=== PATIENT | male | born 1945 | race Caucasian/White ===

== ENCOUNTER 2018-03-08 05:53 | Day surgery (SDC) | payer MEDICARE ==
[~2018-03-08] VITALS: Ht 180.3 cm; Wt 89.4 kg
[~2018-03-08 05:53] MED LIST: ASPIRIN81 MG PO; CARBIDOPA25 MG PO; DULOXETINE HCL60 MG PO; LOSARTAN POTASS25 MG PO; METOPROL TAR25 MG PO; NOVOLIN N100 UNIT/1 SC
[2018-03-08 07:53] VITALS: BP 128/66
== END 2018-03-08 08:05 | disposition home or self-care (01) ==
LOC: ENDO 05:53
PROVIDERS: ATTEND Surgery
PROC: 0DBL8ZX Excision of Transverse Colon, Via Natural or Artificial Opening Endoscopic, Diagnostic (ICD-10-PCS; principal; 2018-03-08)
DX: Z12.11 Encounter for screening for malignant neoplasm of colon (principal); D12.3 Benign neoplasm of transverse colon; K57.30 Diverticulosis of large intestine without perforation or abscess without bleeding; K64.4 Residual hemorrhoidal skin tags; Q43.8 Other specified congenital malformations of intestine; I25.10 Atherosclerotic heart disease of native coronary artery without angina pectoris; E11.9 Type 2 diabetes mellitus without complications; G20 Parkinson's disease; Z86.010 Personal history of colon polyps

== ENCOUNTER 2019-01-29 19:05 | Inpatient (IN) | payer MEDICARE ==
[~2019-01-29] VITALS: Ht 180.3 cm; Wt 78.0 kg
--- NOTE | 2019-01-29 19:25 | NUR ---
PT AMBULATORY TO ROOM, ACCOMPANIED BY HIS .
[2019-01-29] MEDS ORDERED: TRAZODONE50 MG PO (19:51)
[2019-01-29] MEDS ORDERED: HYDROCHLOROT25 MG PO (19:52)
[2019-01-29] MEDS ORDERED: CARB/LEVO SR PO (19:53)
[2019-01-29] MEDS ORDERED: TOPROL XL25 M1 PO (19:54)
--- NOTE | 2019-01-29 20:17 | NUR ---
PT WITH IV ESTABLISHED, BLOOD DRAWN, AWARE OF PENDING ADMISSION.
[2019-01-29 20:19] LABS: URINE BILIRUBIN - DIPSTICK NEGATIVE (NEGATIVE); URINE BLOOD DIPSTICK NEGATIVE (NEGATIVE); URINE COLOR YELLOW; URINE GLUCOSE - DIPSTICK 250 mg/dL (NEGATIVE); URINE KETONE NEGATIVE (NEGATIVE); URINE LEUK ESTERASE NEGATIVE (NEGATIVE); URINE NITRITE - DIPSTICK NEGATIVE (Negative); URINE PH 5.5 (4.5-8.0); URINE PROTEIN - DIPSTICK NEGATIVE (NEG-TRACE); URINE UROBILINOGEN - DIPSTICK 0.2 E.U./dL (0.2)
[2019-01-29 20:21] LABS: HEMATOCRIT 42.3 % (39.0-50.0); HEMOGLOBIN 13.5 g/dl (14.0-18.0); IMMATURE GRANULOCYTES 0.6 % (0.0-5.0); MEAN CELL VOLUME 93.8 fL CALC (80.0-100.0); MEAN CORPUSCULAR HGB 29.9 pG CALC (26.0-32.0); MEAN CORPUSCULAR HGB CONC 31.9 g/L CALC (32.0-36.0); NEUT# 5.43 thou/uL (1.82-7.42); RED BLOOD COUNT 4.51 mill/uL (4.70-6.10)
[2019-01-29 20:40] LABS: ALBUMIN 3.7 g/dL (3.2-5.0); ALKALINE PHOSPHATASE 80 u/l (38-126); ANION GAP 13 (6-22 (CALC)); BILIRUBIN, TOTAL 0.5 mg/dL (0.0-1.4); BUN 28 mg/dL (8-23); BUN/CREATININE RATIO 25 (12-20 (CALC)); CARBON DIOXIDE 31 mmol/l (22-30); CHLORIDE 95 mmol/l (95-108); CREATININE 1.1 mg/dL (0.7-1.3); GFR > 60 ML/MIN (>=60 (CALC)); GFR FOR AFR.AMER. > 60 ML/MIN (>=60 (CALC)); POTASSIUM 4.2 mmol/l (3.5-5.1); SGOT/AST 23 u/l (19-48); SODIUM 135 mmol/l (137-146); TOTAL PROTEIN 6.4 g/dL (6.3-8.2)
--- NOTE | 2019-01-29 21:27 | NUR ---
PT AND WAITING FOR ADMISSION PROCESS, NO DISTRESS NOTED.
[2019-01-29 22:05] VITALS: BP 140/67
--- NOTE | 2019-01-29 22:05 | NUR ---
PT ARRIVED TO THE FLOOR VIA STRETCHER, ACCOMPANIED BY SYED, RN AND . PT AMBULATED FROM STRETCHER TO BED, GATE WEAK. RESPIRATIONS EVEN AND UNLABORED. VS OBTAINED AND ASSESSMENT COMPLETED. LUNGS SOUND CLEAR. PT REPORTS FEELING SORE IN HIS GROIN AREA. PT ORIENTED TO ROOM AND CALL [facility]. SAFETY PRECAUTIONS IN PLACE. WILL CONTINUE TO MONITOR.
--- NOTE | 2019-01-29 22:10 | NUR ---
REPORT CALLED TO PINKY. PT TAKEN TO ROOM 260 WITHOUT INCIDENT.
[2019-01-30 03:24] VITALS: BP 115/62
--- NOTE | 2019-01-30 04:00 | NUR ---
PT RESTING IN BED WITH EYES CLOSED. RESPIRATIONS EVEN AND UNLABORED ON RA. NO S/S OF DISTRESS.
[2019-01-30 05:25] LABS: HEMATOCRIT 41.3 % (39.0-50.0); HEMOGLOBIN 13.2 g/dl (14.0-18.0); IMMATURE GRANULOCYTES 0.7 % (0.0-5.0); MEAN CELL VOLUME 94.5 fL CALC (80.0-100.0); MEAN CORPUSCULAR HGB 30.2 pG CALC (26.0-32.0); NEUT# 4.49 thou/uL (1.82-7.42); RED BLOOD COUNT 4.37 mill/uL (4.70-6.10); RED CELL DISTRI WIDTH 12.9 % (11.5-15.5)
[2019-01-30 05:38] LABS: LIPASE 63 u/l (23-300)
[2019-01-30 05:39] LABS: ALKALINE PHOSPHATASE 68 u/l (38-126); ANION GAP 10 (6-22 (CALC)); BILIRUBIN, TOTAL 0.7 mg/dL (0.0-1.4); BUN 26 mg/dL (8-23); BUN/CREATININE RATIO 23 (12-20 (CALC)); CARBON DIOXIDE 29 mmol/l (22-30); CHLORIDE 102 mmol/l (95-108); CREATININE 1.1 mg/dL (0.7-1.3); GFR > 60 ML/MIN (>=60 (CALC)); GFR FOR AFR.AMER. > 60 ML/MIN (>=60 (CALC)); POTASSIUM 4.1 mmol/l (3.5-5.1); SGOT/AST 17 u/l (19-48); SODIUM 137 mmol/l (137-146); TOTAL PROTEIN 5.4 g/dL (6.3-8.2)
[2019-01-30 06:21] LABS: ALBUMIN 2.9 g/dL (3.2-5.0); AMYLASE < 30 u/l (30-110)
--- NOTE | 2019-01-30 07:00 | NUR ---
PT REPORT RECIEVED FROM BALTAZAR VANCE. PT RESTING. NO S/S OF DISTRESS. CALL LIGHT IN REACH. WILL CONTINUE TO MONITOR.
--- NOTE | 2019-01-30 07:38 | NUR ---
PT A/O X3. SPEECH IS CLEAR. RESP EVEN AND UNLABORED. LUNG SOUNDS CLEAR. BOWEL SOUNDS ACTIVE X4. STRONG RADIAL, WEAK PEDAL PULSES. #20 LFA NS @125. SITE APPEARS HEALTHY. WOUND TO LT GROIN; REDDEDN AND WARM TO TOUCH W/ MILD SWELLING NOTED. LLE WOUND; SCANT AMOUNT OF SEROSANGUINEOUS DRAINAGE W/ REDNESS. CLOSED SCABBING TO POSTERIOR LT FOOT. +1 EDEMA TO BILATERAL FEET. ENCOURAGED ELEVATION. PT DENIES ANY PAIN OR NEEDS. POC DISCUSSED. SAFETY PRECAUTIONS IN PLACE. BED ALARM ON. CALL LIGHT IN REACH. WILL CONTINUE TO MONITOR.
[2019-01-30 07:46] VITALS: BP 140/63
--- NOTE | 2019-01-30 11:40 | NUR ---
DR. DURON IN TO SEE PT
--- NOTE | 2019-01-30 12:02 | NUR ---
PT RESTING IN BED. NO C/O PAIN OR NEEDS. SPOUSE AT BEDSIDE. BED ALARM ON. CALL LIGHT IN REACH. WILL CONTINUE TO MONITOR.
--- NOTE | 2019-01-30 13:31 | NUR ---
CALLED OFFICE FOR CONSULTATION OF INGUINAL ABCESS. SPOKE TO KAROLINA GAVE NAME, , ROOM NUMBER AND CALL BACK NUMBER. SAID WAS IN A PROCEDURE BUT SHE WOULD SEND HIM A MESSAGE.
[2019-01-30 15:20] VITALS: BP 114/58
--- NOTE | 2019-01-30 16:12 | NUR ---
PT RESTING. NO C/O PAIN OR NEEDS. CALL LIGHT IN REACH. WILL CONTINUE TO MONITOR.
[2019-01-30 18:55] VITALS: BP 140/65
--- NOTE | 2019-01-30 19:15 | NUR ---
REPORT RECIEVED FROM FRANK LOUIS. PT RESTING IN BED ALERT AND ORIENTED. AT BEDSIDE. PT DENIES ANY PAIN OR DISCOMFORT. SAFETY PRECAUTIONS IN PLACE. WILL CONTINUE TO MONITOR.
--- NOTE | 2019-01-30 20:30 | NUR ---
PT RESTING IN RECLINER AT BEDSIDE, PT'S IS STAYING THE NIGHT. RESPIRATIONS EVEN AND UNLABORED ON RA, LUNGS SOUND CLEAR. PEDAL PULSES ARE WEAK. SAFETY PRECAUTIONS IN PLACE. WILL CONTINE TO MONITOR.
--- NOTE | 2019-01-31 01:05 | NUR ---
PT RESTING IN BED WITH EYES CLOSED. RESPIRATIONS EVEN AND UNLABORED ON RA. NO S/S OF DISTRESS. SAFETY PRECAUTIONS IN PLACE. WILL CONTINUE TO MONITOR.
[2019-01-31 03:47] VITALS: BP 136/64
--- NOTE | 2019-01-31 04:37 | NUR ---
PT RESTING IN BED, AT BEDSIDE. NO S/S OF DISTRESS AT THIS TIME. SAFETY PRECAUTIONS IN PLACE. WILL CONTINUE TO MONITOR.
[2019-01-31 05:31] LABS: HEMATOCRIT 45.9 % (39.0-50.0); HEMOGLOBIN 14.5 g/dl (14.0-18.0); IMMATURE GRANULOCYTES 0.4 % (0.0-5.0); MEAN CELL VOLUME 94.8 fL CALC (80.0-100.0); MEAN CORPUSCULAR HGB CONC 31.6 g/L CALC (32.0-36.0); NEUT# 5.26 thou/uL (1.82-7.42); RED BLOOD COUNT 4.84 mill/uL (4.70-6.10); RED CELL DISTRI WIDTH 13.1 % (11.5-15.5)
[2019-01-31 05:49] LABS: ALBUMIN 3.4 g/dL (3.2-5.0); ALKALINE PHOSPHATASE 74 u/l (38-126); ANION GAP 13 (6-22 (CALC)); BILIRUBIN, TOTAL 0.6 mg/dL (0.0-1.4); BUN 20 mg/dL (8-23); BUN/CREATININE RATIO 17 (12-20 (CALC)); CARBON DIOXIDE 29 mmol/l (22-30); CHLORIDE 103 mmol/l (95-108); CREATININE 1.2 mg/dL (0.7-1.3); GFR 60 ML/MIN (>=60 (CALC)); GFR FOR AFR.AMER. > 60 ML/MIN (>=60 (CALC)); POTASSIUM 4.6 mmol/l (3.5-5.1); SGOT/AST 15 u/l (19-48); SODIUM 140 mmol/l (137-146); TOTAL PROTEIN 6.1 g/dL (6.3-8.2)
--- NOTE | 2019-01-31 07:00 | NUR ---
SHIFT CHANGE REPORT, PT AWAKE ALERT AND ORIENTED RESTING IN BED, NO C/O DISCOMFORT AT THIS TIME, ULCERS TO LOWER EXT AND ABSCESS TO LEFT LOWER ABD OBSERVED, SPOUSE AT BEDSIDE, CALL [facility] IN REACH.
[2019-01-31 07:59] VITALS: BP 164/87
--- NOTE | 2019-01-31 09:10 | NUR ---
DR LIMON ROUNDED, DIS BEDSIDE I&D TO LOWER ABD/GROIN ABSCESS AFTER EXPLAINING PROCEDURE TO PT WHO TOLERATED WELL, WILL CONTINUE TO MONITOR.
--- NOTE | 2019-01-31 12:00 | NUR ---
RESTING IN BED, SURGICAL DRESSING REINFORCED, SPOUSE AT BEDSIDE.
--- NOTE | 2019-01-31 16:00 | NUR ---
PT FOUND IN ROOM WITH SUGICAL DRESSING OFF AND REPORTED IT WAS REMOVED BY A DOCTOR BUT COULD NOT TELL HIS NAME, PACKING WAS STILL IN PLACE, MARK APPLIED AND COVERED WITH TAPE.
[2019-01-31 17:00] VITALS: BP 135/65
[2019-01-31 19:00] VITALS: BP 161/68
--- NOTE | 2019-01-31 20:00 | NUR ---
PT RESTING IN BED, NO SIGNS OF DISTRESS NOTED, RESP EVEN AND UNLABORED. REASSESSED PAIN FROM ULTRAM. PT STATES PAIN NOW 5/10, FEELS BETTER. PT ALERT AND ORIENTED X3. DISCUSSED POC, PT AGREES. DRESSING TO ABD CDI. ASSESSMENT COMPLETED, CALL LIGHT IN REACH,CONTINUE TO MONITOR.
--- NOTE | 2019-01-31 20:43 | NUR ---
LEFT MESSAGE FOR MD PT ACCUCECK 343 BUT HAS NO NIGHT TIME COVERAGE. AWAITING NEW ORDERS. PT RESTING IN BED, NO SIGNS OF DISTRESS NOTED, RESP EVEN AND UNLABORED. PT VOICES NO NEEDS OR COMPLAINTS AT THIS TIME. MEDICATED WITH SINEMET. AT BEDSIDE, CALL LIGHT IN REACH,CONTINUE TO MONITOR.
--- NOTE | 2019-02-01 | NUR ---
IV SUMIT INITIATED, PT VOICES NO NEEDS OR COMPLAINTS AT THIS TIME. CALL LIGHT IN REACH,CONTINUE TO MONITOR.
[2019-02-01 04:08] VITALS: BP 169/82
[2019-02-01 05:20] LABS: HEMOGLOBIN 13.6 g/dl (14.0-18.0); IMMATURE GRANULOCYTES 0.4 % (0.0-5.0); MEAN CELL VOLUME 95.3 fL CALC (80.0-100.0); MEAN CORPUSCULAR HGB 30.2 pG CALC (26.0-32.0); MEAN CORPUSCULAR HGB CONC 31.6 g/L CALC (32.0-36.0); NEUT# 6.52 thou/uL (1.82-7.42); RED BLOOD COUNT 4.51 mill/uL (4.70-6.10)
[2019-02-01 05:36] LABS: ALBUMIN 3.4 g/dL (3.2-5.0); ALKALINE PHOSPHATASE 67 u/l (38-126); ANION GAP 12 (6-22 (CALC)); BILIRUBIN, TOTAL 0.7 mg/dL (0.0-1.4); BUN 19 mg/dL (8-23); BUN/CREATININE RATIO 18 (12-20 (CALC)); CARBON DIOXIDE 30 mmol/l (22-30); CHLORIDE 102 mmol/l (95-108); CREATININE 1.1 mg/dL (0.7-1.3); GFR > 60 ML/MIN (>=60 (CALC)); GFR FOR AFR.AMER. > 60 ML/MIN (>=60 (CALC)); POTASSIUM 4.5 mmol/l (3.5-5.1); SGOT/AST 18 u/l (19-48); SODIUM 139 mmol/l (137-146); TOTAL PROTEIN 6.1 g/dL (6.3-8.2)
[2019-02-01 08:14] VITALS: BP 142/82
--- NOTE | 2019-02-01 08:20 | NUR ---
PT RESTING QUIETLY IN BED. NO RESP DISTRESS NOTED. ASSESSMENT COMPLETED. AT BEDSIDE. DRESSING TO LEFT GROIN, CLEAN, DRY AND INTACT. INSTRUCTED PT ON USE OF CALL LIGHT TO ENSURE HE CALLS FOR HELP. WILL CONTINUE TO MONITOR. CALL LIGHT WITHIN REACH.
--- NOTE | 2019-02-01 13:59 | NUR ---
PT RESTING QUIETLY IN BED. NO RESP. DISTRESS NOTED. NO CHANGE IN ASSESSMENT. AT BEDSIDE. WILL CONTINUE TO MONITOR. CALL LIGHT WITHIN REACH.
[2019-02-01 15:00] VITALS: BP 122/74
--- NOTE | 2019-02-01 17:02 | NUR ---
PT CONTINUES TO REST QUIETLY IN BED. REMAINS AT BEDSIDE. NO RESP. DISTRESS NOTED. NO CHANGE IN ASSESSMENT. CALL LIGHT WITHIN REACH.
--- NOTE | 2019-02-01 19:00 | NUR ---
PT RESITNG IN BED, NO SIGNS OF DISTRESS NOTED, RESP EVEN AND UNLABORED. PT ALERT AND ORIENTED X3, AT BEDSIDE. DISCUSSED POC, ENCOURAGED PT TO GET OUT OF BED, PT STATES HE WANTS TO SHOWER, PT'S STATES SHE WILL ASSIST. IV SITE FLUSHED WELL, COVERED FOR SHOWER. DRESSING TO ABD CDI, COVERED DRESSING. INFORMED PT TO CALL FOR ASSISTANCE, ASSESSMENT COMPLETED, CALL LIGHT IN REACH,CONTINUE TO MONITOR.
[2019-02-01 19:52] VITALS: BP 121/61
--- NOTE | 2019-02-01 20:00 | NUR ---
PT RETURNED TO BED FROM SHOWER, NO SIGNS OF DISTRESS NOTED, RESP EVEN AND UNLABORED. DISCUSSED DRESSING CHANGE, PT AGREES. REMOVED DRESSING AND CLEANSED AREA WITH NS, PT TOLERATED WELL. COVERED WITH 4X4 AND SECURED WITH TEGADERM. NOTED AREA TO R REDD OPEN; PHOTO OBTAINED AND DRESSING APPLIED. CALL LIGHT IN REACH,CONTINUE TO MONITOR.
--- NOTE | 2019-02-01 20:54 | NUR ---
LORENA Chowdhury MD NOTIFIED NO NEW ORDERS AT THIS TIME. PT MEDICATED WITH NOVOLOG 14 UNITS. CALL LIGHT IN REACH,CONTINUE TO MONITOR.
--- NOTE | 2019-02-02 01:41 | NUR ---
PT FEELING NAUSEOUS, DRY HEAVING, NO SIGNS OF DISTRESS NOTED, RESP EVEN AND UNLABORED. PT MEDICATED WITH ZOFRAN. CALL LIGHT IN REACH,CONTINUE TO MONITOR.
--- NOTE | 2019-02-02 03:42 | NUR ---
PT ON CONTACT PRECAUTIONS DISCUSSED WITH PT AND REGARDING MRSA.BOTH VERBALIZED UNDERSTANDING. CALL LIGHT IN REACH,CONTINUE TO MONITOR.
--- NOTE | 2019-02-02 04:02 | NUR ---
PT SITTING ON SIDE OF BED CONTINUES TO FEEL NAUSEOUS AND DRY HEAVE, OFFERED JAVIER, PT DECLINED STATES HE WILL "FEEL BETTER IF IT WILL COME OUT." CALL LIGHT IN REACH,CONTINUE TO MONITOR.
[2019-02-02 04:25] VITALS: BP 145/75
[2019-02-02 04:38] LABS: HEMATOCRIT 44.5 % (39.0-50.0); IMMATURE GRANULOCYTES 0.4 % (0.0-5.0); MEAN CELL VOLUME 95.5 fL CALC (80.0-100.0); MEAN CORPUSCULAR HGB CONC 31.5 g/L CALC (32.0-36.0); NEUT# 6.61 thou/uL (1.82-7.42); RED BLOOD COUNT 4.66 mill/uL (4.70-6.10)
[2019-02-02 04:49] LABS: ALBUMIN 3.8 g/dL (3.2-5.0); ALKALINE PHOSPHATASE 71 u/l (38-126); ANION GAP 13 (6-22 (CALC)); BILIRUBIN, TOTAL 0.7 mg/dL (0.0-1.4); BUN 23 mg/dL (8-23); BUN/CREATININE RATIO 20 (12-20 (CALC)); CARBON DIOXIDE 31 mmol/l (22-30); CHLORIDE 99 mmol/l (95-108); CREATININE 1.1 mg/dL (0.7-1.3); GFR > 60 ML/MIN (>=60 (CALC)); GFR FOR AFR.AMER. > 60 ML/MIN (>=60 (CALC)); POTASSIUM 4.8 mmol/l (3.5-5.1); SGOT/AST 22 u/l (19-48); SODIUM 139 mmol/l (137-146); TOTAL PROTEIN 6.7 g/dL (6.3-8.2)
--- NOTE | 2019-02-02 07:21 | NUR ---
SHIFT CHANGE REPORT, PT SLEEPING, NO SIGN DISCOMFORT, CALL [facility] IN REACH AND SPOUSE IN ROOM.
[2019-02-02 07:43] VITALS: BP 148/81
--- NOTE | 2019-02-02 09:00 | NUR ---
AWAKE AND ALERT SITTING UP IN BED HAVNG MEAL, DENIED PAIN, ALL NEEDS ADDRESSED.
--- NOTE | 2019-02-02 12:00 | NUR ---
PT SITTING UP IN BED PREPARED TO HAVE MEAL, DR DURON ROUNDED AND DISCUSSED D/C PLAN TO GO HOME LATER TODAY. PT STATED UNDERSTANDING
[2019-02-02] MEDS ORDERED: DOXYCYCL HYC100 MG PO (13:56)
[2019-02-02 15:00] VITALS: BP 114/59
--- NOTE | 2019-02-02 16:00 | NUR ---
SLEEPING AT THIS TIME, ALL NEEDS MET, CALL [facility] IN REACH.
--- NOTE | 2019-02-02 19:00 | NUR ---
Discharge instructions given. Patient verbalizes understanding of same. Discharged in stable condition via Wheelchair to Home with spouse. All belongings sent with pt.
== END 2019-02-02 19:00 | disposition home health service (06) | DRG 581 ==
LOC: ED 19:05 → ED-I 19:43 → ED 19:43 → ED-I 21:32 → ED 21:46 → MS2 21:47
PROVIDERS: Emergency Medicine; ADMIT Internal Medicine Nephrology; ATTEND Internal Medicine Nephrology
PROC: 0Y960ZZ Drainage of Left Inguinal Region, Open Approach (ICD-10-PCS; principal; 2019-01-31)
DX: L02.214 Cutaneous abscess of groin (principal); I10 Essential (primary) hypertension; E11.65 Type 2 diabetes mellitus with hyperglycemia; I25.10 Atherosclerotic heart disease of native coronary artery without angina pectoris; J44.9 Chronic obstructive pulmonary disease, unspecified; S30.861A Insect bite (nonvenomous) of abdominal wall, initial encounter; G20 Parkinson's disease; H91.92 Unspecified hearing loss, left ear; H54.62 Unqualified visual loss, left eye, normal vision right eye; F41.8 Other specified anxiety disorders; B95.62 Methicillin resistant Staphylococcus aureus infection as the cause of diseases classified elsewhere; W57.XXXA Bitten or stung by nonvenomous insect and other nonvenomous arthropods, initial encounter; Y93.89 Activity, other specified; Y92.007 Garden or yard of unspecified non-institutional (private) residence as the place of occurrence of the external cause; Z95.1 Presence of aortocoronary bypass graft; Z79.4 Long term (current) use of insulin

== ENCOUNTER 2019-03-05 20:31 | Emergency (ER) | payer MEDICARE ==
[~2019-03-05] VITALS: Ht 180.3 cm; Wt 85.0 kg
[~2019-03-05 20:31] MED LIST changes: +CARB/LEVO SR PO; +DOXYCYCL HYC100 MG PO; +HYDROCHLOROT25 MG PO; -NOVOLIN N100 UNIT/1 SC; +TOPROL XL25 M1 PO; +TRAZODONE50 MG PO
[2019-03-05] MEDS ORDERED: TRAZODONE HCL100 MG PO (21:06)
[2019-03-05] MEDS ORDERED: LOSARTAN POTAS100 MG PO (21:07)
[2019-03-05] MEDS ORDERED: KEFLEX500 M1 PO (21:09)
[2019-03-05] MEDS ORDERED: NOVOLIN N100 UNIT/1 SC ×2 (21:09)
[2019-03-05] MEDS ORDERED: BACTROBAN TOP (21:09)
[2019-03-05 21:16] VITALS: BP 144/82
[2019-03-05] MEDS ORDERED: NOVOLIN R100 UNIT/M SC (21:16)
== END 2019-03-05 21:16 | disposition home or self-care (01) ==
LOC: ED 20:31
DX: L01.00 Impetigo, unspecified (principal); S60.562A Insect bite (nonvenomous) of left hand, initial encounter; I10 Essential (primary) hypertension; E11.9 Type 2 diabetes mellitus without complications; I25.10 Atherosclerotic heart disease of native coronary artery without angina pectoris; J44.9 Chronic obstructive pulmonary disease, unspecified; G20 Parkinson's disease; W57.XXXA Bitten or stung by nonvenomous insect and other nonvenomous arthropods, initial encounter; Z95.1 Presence of aortocoronary bypass graft; Z79.4 Long term (current) use of insulin